=== PATIENT | female | born 1930 | race Caucasian/White ===

== ENCOUNTER 2018-11-23 00:45 | Emergency (ER) | payer OTHER ==
[2018-11-23 02:23] VITALS: BP 162/67; PULSE 74; TEMP 97.7; BMI 18.0
--- NOTE | 2018-11-23 03:43 | PDOC ---
History of Present Illness - General Chief Complaint: Pain Stated Complaint: ABD PAIN Time Seen by Provider: 11/23/18 02:18 History Source: Patient Exam Limitations: No Limitations - History of Present Illness Initial Comments: 11/23/18 03:41 Patient is a 87 year with h/o DVT on Coumadin, abdominal aneurysm, HTN, NITHYA, right kidney cancer, right nephrectomy, complaining of lower abdominal pain which occurred about 9:30 PM. Patient states she had sudden onset of crampy type lower abdominal pain which lasted for about 6 minutes then resolved. She states she's passed gas went to the bathroom to have a bowel movement then everything was resolved. States even though the pain was resolved she was concerned about the origin of the pain and so decided to come to the emergency room for evaluation. In the ER she states she had no pain and wanted to leave however on the advice of the triage nurse she decided to stay. Denies any nausea , vomiting, fever, chills, diarrhea. PMD: Dr. Mcgarry PMHX: as above PSOCHX: smoke cig 1/4PPD, neg drug, neg drink ALL: NKDA GENERAL/CONSTITUTIONAL: No fever or chills. No weakness. No weight change. HEAD, EYES, EARS, NOSE AND THROAT: No change in vision. No ear pain or discharge. No sore throat. CARDIOVASCULAR: No chest pain or shortness of breath. RESPIRATORY: No cough, wheezing, or hemoptysis. GASTROINTESTINAL: No nausea, vomiting, diarrhea or constipation. No rectal bleeding. GENITOURINARY: No dysuria, frequency, or change in urination. MUSCULOSKELETAL: (+) joint Pain, (-) muscle swelling or pain. No neck or back pain.] SKIN AND BREASTS: No rash or easy bruising. NEUROLOGIC: No headache, vertigo, loss of consciousness, or loss of sensation. PSYCHIATRIC: No depression or anxiety. ENDOCRINE: No increased thirst. No abnormal weight change. HEMATOLOGIC/LYMPHATIC: No anemia, easy bleeding, or history of blood clots. ALLERGIC/IMMUNOLOGIC: No hives or skin allergy. No latex allergy. GENERAL: The patient is awake, alert, and fully oriented, in no acute distress. HEAD: Normal with no signs of trauma. EYES: Pupils equal, round and reactive to light, extraocular movements intact, sclera anicteric, conjunctiva clear. ENT: Ears normal, nares patent, oropharynx clear without exudates. Moist mucous membranes. NECK: Normal range of motion, supple without lymphadenopathy, JVD, or masses. LUNGS: Breath sounds equal, clear to auscultation bilaterally. No wheezes, and no crackles. HEART: Regular rate and rhythm, normal S1 and S2 without murmur, rub. ABDOMEN: Soft, nontender, normoactive bowel sounds. No guarding, no rebound. No masses. EXTREMITIES: Normal range of motion, no edema. No clubbing or cyanosis. No cords, erythema, or tenderness. NEUROLOGICAL: Cranial nerves II through XII grossly intact. Normal speech, normal gait. PSYCH: Normal mood, normal affect. SKIN: Warm, Dry, normal turgor, no rashes or lesions noted. Past History - Past Medical History Allergies/Adverse Reactions: Allergies Allergy/AdvReac Type Severity Reaction Status Date / Time No Known Allergies Allergy Verified 11/23/18 02:24 Home Medications: Ambulatory Orders Metoprolol Tartrate [Lopressor] 100 mg PO BID 01/08/12 Atorvastatin Ca [Lipitor] 20 mg PO HS 06/10/12 Aspirin [ASA] 81 mg PO DAILY 1 Days tab 06/16/12 Isosorbide Mononitrate [Imdur] 30 mg PO HS #0 tab.sr.24h 06/16/12 Folic Acid - 1 mg PO DAILY #0 tablet 07/19/12 Lisinopril [Prinivil] 20 mg PO DAILY #0 tablet 07/19/12 Pantoprazole Sodium [Protonix] 40 mg PO BID #0 tablet.dr 07/19/12 Amlodipine Besylate [Norvasc -] 5 mg PO DAILY 07/30/14 Warfarin Sodium [Coumadin] 4 mg PO HS 07/30/14 Anemia: No Asthma: No Cancer: Yes (r kidney) Cardiac Disorders: No CVA: No COPD: No CHF: No Dementia: No Diabetes: No GI Disorders: No Disorders: No HTN: Yes Hypercholesterolemia: Yes Liver Disease: No Seizures: No Thyroid Disease: No - Surgical History Abdominal Surgery: Yes Appendectomy: No Cardiac Surgery: No Cholecystectomy: No Lung Surgery: No Neurologic Surgery: No Orthopedic Surgery: Yes (fx left wrist) - Suicide/Smoking/Psychosocial Hx Smoking Status: Yes Smoking History: Never smoked Have you smoked in the past 12 months: No Number of Cigarettes Smoked Daily: 7 Information on smoking cessation initiated: No 'Breaking Loose' booklet given: 01/10/12 Hx Alcohol Use: No Drug/Substance Use Hx: No Substance Use Type: None Hx Substance Use Treatment: No *Physical Exam - Vital Signs Last Vital Signs Temp Pulse Resp BP Pulse Ox 97.7 F 74 16 162/67 97 11/23/18 00:45 11/23/18 00:45 11/23/18 00:45 11/23/18 00:45 11/23/18 00:45 Moderate Sedation - Procedure Monitoring Vital Signs: Procedure Monitoring Vital Signs Temperature 97.7 F 11/23/18 00:45 Pulse Rate 74 11/23/18 00:45 Respiratory Rate 16 11/23/18 00:45 Blood Pressure 162/67 11/23/18 00:45 O2 Sat by Pulse Oximetry (%) 97 11/23/18 00:45 Medical Decision Making - Medical Decision Making 11/23/18 03:41 Patient is a 87 year with h/o DVT on Coumadin, abdominal aneurysm, HTN, NITHYA, right kidney cancer, right nephrectomy, complaining of lower abdominal pain which occurred about 9:30 PM. Patient states she had sudden onset of crampy type lower abdominal pain which lasted for about 6 minutes then resolved. She states she's passed gas went to the bathroom to have a bowel movement then everything was resolved. States even though the pain was resolved she was concerned about the origin of the pain and so decided to come to the emergency room for evaluation. In the ER she states she had no pain and wanted to leave however on the advice of the triage nurse she decided to stay. Denies any nausea , vomiting, fever, chills, diarrhea. Workup recommended due to history of abdominal aneurysm, however patient is refusing and wants to sign out AMA. Patient advised of the radius that she could rupture her aneurysm and bleed and subsequently , but does not want to stay. *DC/Admit/Observation/Transfer Diagnosis at time of Disposition: Abdominal pain Qualifiers: Abdominal location: unspecified location Qualified Code(s): R10.9 - Unspecified abdominal pain - Discharge Dispostion Disposition: AGAINST MEDICAL ADVICE Condition at time of disposition: Fair - Referrals Referrals: Mark Kuhn MD [Primary Care Provider] - - Patient Instructions - Post Discharge Activity
== END 2018-11-23 03:43 | disposition left against medical advice (07) ==
LOC: JER 00:45
DX: R10.9 Unspecified abdominal pain (principal); I10 Essential (primary) hypertension; E78.5 Hyperlipidemia, unspecified; Z86.718 Personal history of other venous thrombosis and embolism; Z79.01 Long term (current) use of anticoagulants; Z85.528 Personal history of other malignant neoplasm of kidney; Z90.5 Acquired absence of kidney; Z86.79 Personal history of other diseases of the circulatory system
CPT/HCPCS: 99281-25

== ENCOUNTER 2019-04-10 22:44 | Emergency (ER) | payer OTHER | END 2019-04-11 03:52 | disposition home or self-care (01) | LOC: JER 22:44 | DX: R25.2 Cramp and spasm (principal); I10 Essential (primary) hypertension; I71.4 Abdominal aortic aneurysm, without rupture; F17.210 Nicotine dependence, cigarettes, uncomplicated ==

== ENCOUNTER 2020-08-16 10:58 | Inpatient (IN) | payer OTHER ==
[2020-08-16] MEDS ORDERED: ACETAMINOPHEN 1000 MG/100 ML VIAL (NON FORMULARY) IVPB ONE (11:58)
[2020-08-16] MEDS ORDERED: ACETAMINOPHEN INJECTION 100 ML IVPB ONE (12:36)
[2020-08-16 12:56] LABS: BASO % 0.3 % (0-2.0); EOS % 0.1 % (0-4.5); HEMATOCRIT 28.9 % (32.4-45.2); HEMOGLOBIN 9.1 GM/dL (10.7-15.3); LYMPH % 4.6 % (8-40); MCHC 31.3 g/dl (32.0-36.0); MEAN CELL VOLUME 79.8 fl (80-96); MEAN PLT VOLUME 7.4 fl (7.5-11.1); MONO % 5.3 % (3.8-10.2); NEUT % 89.7 % (42.8-82.8); PLATELET COUNT 429 K/MM3 (134-434); RBC 3.62 M/mm3 (3.60-5.2); RDW 18.5 % (11.6-15.6); WHITE BLOOD COUNT 12.1 K/mm3 (4.0-10.0)
[2020-08-16 13:01] LABS: INR 2.73 (0.83-1.09); PROTHROMBIN TIME (PATIENT) 32.1 SEC (9.7-13.0)
[2020-08-16 13:14] LABS: POTASSIUM 4.6 mmol/L (3.5-5.1)
[2020-08-16 13:16] LABS: ALBUMIN 2.2 g/dl (3.4-5.0); BLOOD UREA NITROGEN 25.8 mg/dL (7-18); CALCIUM 8.9 mg/dL (8.5-10.1)
[2020-08-16 13:20] LABS: CREATININE 1.4 mg/dL (0.55-1.3)
[2020-08-16 13:21] LABS: BILIRUBIN,TOTAL 0.6 mg/dL (0.2-1); TOT PROT 5.8 g/dl (6.4-8.2)
[2020-08-16] MEDS ORDERED: CEFTRIAXONE 1,000 MG in DEXTROSE 5%-WATER - 50 ML IVPB ONE (14:08)
[2020-08-16] MEDS ORDERED: AZITHROMYCIN IVPB 500 MG in DEXTROSE 5%-WATER - 250 ML IVPB ONE (14:09)
[2020-08-16] MEDS ORDERED: AZITHROMYCIN IVPB 500 MG/250 ML BAG IVPB ONE (14:23)
[2020-08-16] MEDS ORDERED: CEFTRIAXONE 1 GM/50 ML BAG ONE (14:23)
[2020-08-16] MEDS ORDERED: WARFARIN NA 5 MG TABLET PO SCH (18:00)
[2020-08-16] MEDS ORDERED: WARFARIN NA 5 MG TABLET ONE (18:38)
[2020-08-16] MEDS ORDERED: methylPREDNISolone NA SUCC 40 MG/1 ML VIAL ONE (18:39)
[2020-08-16] MEDS: methylPREDNISolone NA SUCC 40 MG/1 ML VIAL IVPUSH SCH (18:46)
[2020-08-16] MEDS ORDERED: PATIENT'S OWN MEDICATION (NON-FORMULARY) (Fluticasone Propionate [Flovent Hfa] 44 MCG Inha IH SCH (22:00)
[2020-08-16] MEDS: MOMETASONE FUROATE 220 MCG/IH INHALER IH SCH (22:28)
[2020-08-16] MEDS: ISOSORBIDE MONONITRATE 30 MG TAB.SR.24H (FP) PO SCH (22:28)
[2020-08-16] MEDS: ATORVASTATIN CA 40 MG TABLET (FP) PO SCH (22:29)
[2020-08-16] MEDS: guaiFENesin 600 MG TABLET.ER (FP) PO SCH (22:29)
[2020-08-17] MEDS ORDERED: methylPREDNISolone NA SUCC 40 MG/1 ML VIAL ONE (02:07)
[2020-08-17 03:30] VITALS: BMI 16.1
[2020-08-17] MEDS: methylPREDNISolone NA SUCC 40 MG/1 ML VIAL IVPUSH SCH ×3 (03:59→18:23)
[2020-08-17 07:34] LABS: BASO % 0.1 % (0-2.0); HEMATOCRIT 25.8 % (32.4-45.2); HEMOGLOBIN 8.1 GM/dL (10.7-15.3); LYMPH % 7.4 % (8-40); MCH 25.5 pg (25.7-33.7); MCHC 31.5 g/dl (32.0-36.0); MEAN PLT VOLUME 7.9 fl (7.5-11.1); NEUT % 90.5 % (42.8-82.8); PLATELET COUNT 413 K/MM3 (134-434); RBC 3.19 M/mm3 (3.60-5.2); RDW 18.7 % (11.6-15.6); WHITE BLOOD COUNT 7.9 K/mm3 (4.0-10.0)
[2020-08-17 07:44] LABS: POTASSIUM 4.7 mmol/L (3.5-5.1)
[2020-08-17 07:45] LABS: INR 3.54 (0.83-1.09); PROTHROMBIN TIME (PATIENT) 41.3 SEC (9.7-13.0)
[2020-08-17 07:54] LABS: ALBUMIN 1.9 g/dl (3.4-5.0); BLOOD UREA NITROGEN 25.9 mg/dL (7-18)
[2020-08-17 07:57] LABS: CREATININE 1.2 mg/dL (0.55-1.3)
[2020-08-17 07:59] LABS: TOT PROT 4.9 g/dl (6.4-8.2)
[2020-08-17] MEDS ORDERED: cefTRIAXone SODIUM 1 GM VIAL ONE (09:41)
[2020-08-17] MEDS ORDERED: DEXTROSE 5%-WATER - 50 ML IVPB ONE (09:41)
[2020-08-17] MEDS: FOLIC ACID 1 MG TABLET (FP) PO SCH (09:49)
[2020-08-17] MEDS: PANTOPRAZOLE 40 MG TABLET PO SCH (09:49)
[2020-08-17] MEDS: guaiFENesin 600 MG TABLET.ER (FP) PO SCH ×2 (09:49→20:59)
[2020-08-17] MEDS: LISINOPRIL 20 MG TABLET PO SCH (09:50)
[2020-08-17] MEDS: amLODIPine BESYLATE 5 MG TABLET (FP) PO SCH (09:50)
[2020-08-17] MEDS ORDERED: PT OWN MED DRAWER 7, Y5N ONE (09:56)
[2020-08-17] MEDS ORDERED: CEFTRIAXONE 1 GM in DEXTROSE 5%-WATER - 50 ML IVPB SCH (10:00)
[2020-08-17] MEDS: TIOTROPIUM BROMIDE 2.5 MCG (SPIRIVA) RESPIMAT INHALER IH SCH (10:38)
[2020-08-17] MEDS: traMADol HCL 50 MG TABLET PO PRN (16:19)
[2020-08-17] MEDS: ISOSORBIDE MONONITRATE 30 MG TAB.SR.24H (FP) PO SCH (20:59)
[2020-08-17] MEDS: ATORVASTATIN CA 40 MG TABLET (FP) PO SCH (20:59)
[2020-08-17] MEDS: MOMETASONE FUROATE 220 MCG/IH INHALER IH SCH (21:58)
[2020-08-18] MEDS: methylPREDNISolone NA SUCC 40 MG/1 ML VIAL IVPUSH SCH ×3 (02:34→17:07)
[2020-08-18] MEDS ORDERED: PIPERACILLIN/TAZOBACTAM 3.375 GM VIAL IVPB ONE ×2 (09:25→16:58)
[2020-08-18] MEDS ORDERED: DEXTROSE 5%-WATER - 50 ML IVPB ONE ×2 (09:25→16:58)
[2020-08-18] MEDS: LISINOPRIL 20 MG TABLET PO SCH (09:31)
[2020-08-18] MEDS: amLODIPine BESYLATE 5 MG TABLET (FP) PO SCH (09:31)
[2020-08-18] MEDS: PANTOPRAZOLE 40 MG TABLET PO SCH (09:31)
[2020-08-18] MEDS: PIPERACILLIN/TAZOB 3.375 GM 3.375 GM in DEXTROSE 5%-WATER - 50 ML IVPB SCH ×2 (09:32→17:07)
[2020-08-18] MEDS: guaiFENesin 600 MG TABLET.ER (FP) PO SCH ×2 (09:32→22:44)
[2020-08-18] MEDS: TIOTROPIUM BROMIDE 2.5 MCG (SPIRIVA) RESPIMAT INHALER IH SCH (09:33)
[2020-08-18] MEDS: FOLIC ACID 1 MG TABLET (FP) PO SCH (09:33)
[2020-08-18 10:14] LABS: PROTHROMBIN TIME (PATIENT) 60.6 SEC (9.7-13.0)
[2020-08-18 10:31] LABS: INR 5.26 (0.83-1.09)
[2020-08-18] MEDS: ATORVASTATIN CA 40 MG TABLET (FP) PO SCH (22:44)
[2020-08-18] MEDS: ISOSORBIDE MONONITRATE 30 MG TAB.SR.24H (FP) PO SCH (22:44)
[2020-08-18] MEDS: MOMETASONE FUROATE 220 MCG/IH INHALER IH SCH (22:44)
[2020-08-18] MEDS: traMADol HCL 50 MG TABLET PO PRN (22:48)
[2020-08-19] MEDS ORDERED: PIPERACILLIN/TAZOBACTAM 3.375 GM VIAL IVPB ONE ×3 (01:28→17:01)
[2020-08-19] MEDS ORDERED: DEXTROSE 5%-WATER - 50 ML IVPB ONE ×3 (01:29→17:02)
[2020-08-19] MEDS: methylPREDNISolone NA SUCC 40 MG/1 ML VIAL IVPUSH SCH ×3 (02:10→17:18)
[2020-08-19] MEDS: PIPERACILLIN/TAZOB 3.375 GM 3.375 GM in DEXTROSE 5%-WATER - 50 ML IVPB SCH ×3 (02:10→17:18)
[2020-08-19 08:41] LABS: BASO % 0.1 % (0-2.0); HEMATOCRIT 28.6 % (32.4-45.2); HEMOGLOBIN 9.1 GM/dL (10.7-15.3); LYMPH % 3.5 % (8-40); MCH 25.7 pg (25.7-33.7); MCHC 31.7 g/dl (32.0-36.0); MEAN CELL VOLUME 80.9 fl (80-96); MEAN PLT VOLUME 7.4 fl (7.5-11.1); MONO % 2.3 % (3.8-10.2); NEUT % 94.1 % (42.8-82.8); PLATELET COUNT 448 K/MM3 (134-434); RBC 3.53 M/mm3 (3.60-5.2)
[2020-08-19 08:46] LABS: PROTHROMBIN TIME (PATIENT) 52.3 SEC (9.7-13.0)
[2020-08-19 09:00] LABS: INR 4.44 (0.83-1.09)
[2020-08-19] MEDS ORDERED: PHYTONADIONE 10 MG/1 ML AMP IVPB ONE (09:01)
[2020-08-19 09:03] LABS: POTASSIUM 4.7 mmol/L (3.5-5.1)
[2020-08-19 09:08] LABS: ALBUMIN 2.2 g/dl (3.4-5.0)
[2020-08-19 09:09] LABS: BLOOD UREA NITROGEN 36.9 mg/dL (7-18)
[2020-08-19 09:11] LABS: CREATININE 1.4 mg/dL (0.55-1.3)
[2020-08-19 09:12] LABS: BILIRUBIN,TOTAL 0.9 mg/dL (0.2-1); TOT PROT 5.4 g/dl (6.4-8.2)
[2020-08-19 09:35] LABS: ANISOCYTOSIS 1+; MACROCYTOSIS 0; PLATELET ESTIMATE NORMAL
[2020-08-19] MEDS: amLODIPine BESYLATE 5 MG TABLET (FP) PO SCH (10:53)
[2020-08-19] MEDS: guaiFENesin 600 MG TABLET.ER (FP) PO SCH ×2 (10:53→21:58)
[2020-08-19] MEDS: FOLIC ACID 1 MG TABLET (FP) PO SCH (10:53)
[2020-08-19] MEDS: TIOTROPIUM BROMIDE 2.5 MCG (SPIRIVA) RESPIMAT INHALER IH SCH (10:53)
[2020-08-19] MEDS: LISINOPRIL 20 MG TABLET PO SCH (10:53)
[2020-08-19] MEDS: PANTOPRAZOLE 40 MG TABLET PO SCH (10:53)
[2020-08-19] MEDS: ISOSORBIDE MONONITRATE 30 MG TAB.SR.24H (FP) PO SCH (21:58)
[2020-08-19] MEDS: ATORVASTATIN CA 40 MG TABLET (FP) PO SCH (21:58)
[2020-08-19] MEDS: MOMETASONE FUROATE 220 MCG/IH INHALER IH SCH (21:59)
[2020-08-19] MEDS: traMADol HCL 50 MG TABLET PO PRN (22:33)
[2020-08-20] MEDS: methylPREDNISolone NA SUCC 40 MG/1 ML VIAL IVPUSH SCH ×3 (02:30→17:11)
[2020-08-20] MEDS ORDERED: DEXTROSE 5%-WATER - 50 ML IVPB ONE ×3 (03:33→16:02)
[2020-08-20] MEDS ORDERED: PIPERACILLIN/TAZOBACTAM 3.375 GM VIAL IVPB ONE ×3 (03:33→16:01)
[2020-08-20] MEDS: PIPERACILLIN/TAZOB 3.375 GM 3.375 GM in DEXTROSE 5%-WATER - 50 ML IVPB SCH ×3 (03:38→17:10)
[2020-08-20 06:52] LABS: BASO % 0.1 % (0-2.0); HEMOGLOBIN 8.7 GM/dL (10.7-15.3); LYMPH % 3.6 % (8-40); MCH 25.2 pg (25.7-33.7); MCHC 31.2 g/dl (32.0-36.0); MEAN CELL VOLUME 80.6 fl (80-96); MEAN PLT VOLUME 7.4 fl (7.5-11.1); NEUT % 92.3 % (42.8-82.8); PLATELET COUNT 362 K/MM3 (134-434); RBC 3.47 M/mm3 (3.60-5.2); RDW 18.9 % (11.6-15.6); WHITE BLOOD COUNT 17.3 K/mm3 (4.0-10.0)
[2020-08-20 06:53] LABS: INR 1.11 (0.83-1.09); PROTHROMBIN TIME (PATIENT) 13.6 SEC (9.7-13.0)
[2020-08-20 07:07] LABS: POTASSIUM 4.4 mmol/L (3.5-5.1)
[2020-08-20 07:10] LABS: BLOOD UREA NITROGEN 37.7 mg/dL (7-18); CALCIUM 8.2 mg/dL (8.5-10.1)
[2020-08-20 07:14] LABS: CREATININE 1.4 mg/dL (0.55-1.3)
[2020-08-20 07:15] LABS: BILIRUBIN,TOTAL 0.8 mg/dL (0.2-1); TOT PROT 5.1 g/dl (6.4-8.2)
[2020-08-20] MEDS ORDERED: PT OWN MED DRAWER 7, Y5N ONE (09:17)
[2020-08-20 09:25] LABS: ANISOCYTOSIS 1+; MACROCYTOSIS 0; PLATELET ESTIMATE NORMAL
[2020-08-20] MEDS: PANTOPRAZOLE 40 MG TABLET PO SCH (09:45)
[2020-08-20] MEDS: LISINOPRIL 20 MG TABLET PO SCH (09:45)
[2020-08-20] MEDS: guaiFENesin 600 MG TABLET.ER (FP) PO SCH ×2 (09:46→22:00)
[2020-08-20] MEDS: FOLIC ACID 1 MG TABLET (FP) PO SCH (09:46)
[2020-08-20] MEDS: TIOTROPIUM BROMIDE 2.5 MCG (SPIRIVA) RESPIMAT INHALER IH SCH (09:46)
[2020-08-20] MEDS: amLODIPine BESYLATE 5 MG TABLET (FP) PO SCH (09:46)
[2020-08-20] MEDS ORDERED: ENOXAPARIN NA (PORCINE) 40 MG/0.4 ML DISP.SYRIN SQ SCH ×2 (10:45→22:00)
[2020-08-20] MEDS ORDERED: ENOXAPARIN NA (PORCINE) 40 MG/0.4 ML DISP.SYRIN SQ ONE (13:30)
[2020-08-20] MEDS: ISOSORBIDE MONONITRATE 30 MG TAB.SR.24H (FP) PO SCH (22:00)
[2020-08-20] MEDS: ATORVASTATIN CA 40 MG TABLET (FP) PO SCH (22:00)
[2020-08-20] MEDS: MOMETASONE FUROATE 220 MCG/IH INHALER IH SCH (22:01)
[2020-08-21] MEDS ORDERED: PIPERACILLIN/TAZOBACTAM 3.375 GM VIAL IVPB ONE ×3 (02:04→16:30)
[2020-08-21] MEDS ORDERED: DEXTROSE 5%-WATER - 50 ML IVPB ONE ×3 (02:04→16:30)
[2020-08-21] MEDS: PIPERACILLIN/TAZOB 3.375 GM 3.375 GM in DEXTROSE 5%-WATER - 50 ML IVPB SCH ×3 (03:00→17:30)
[2020-08-21] MEDS: methylPREDNISolone NA SUCC 40 MG/1 ML VIAL IVPUSH SCH ×3 (03:00→17:30)
[2020-08-21 07:00] LABS: INR 1.06 (0.83-1.09); PROTHROMBIN TIME (PATIENT) 12.8 SEC (9.7-13.0)
[2020-08-21] MEDS: amLODIPine BESYLATE 5 MG TABLET (FP) PO SCH (09:29)
[2020-08-21] MEDS: TIOTROPIUM BROMIDE 2.5 MCG (SPIRIVA) RESPIMAT INHALER IH SCH (09:29)
[2020-08-21] MEDS: LISINOPRIL 20 MG TABLET PO SCH (09:29)
[2020-08-21] MEDS: FOLIC ACID 1 MG TABLET (FP) PO SCH (09:29)
[2020-08-21] MEDS: PANTOPRAZOLE 40 MG TABLET PO SCH (09:29)
[2020-08-21] MEDS: guaiFENesin 600 MG TABLET.ER (FP) PO SCH ×2 (09:29→21:52)
[2020-08-21 14:28] LABS: BF WBC & OTHER NUCLEATED CELLS 1348 /mm3
[2020-08-21 15:41] LABS: BODY FLUID MACROPHAGES 16 %
[2020-08-21] MEDS: traMADol HCL 50 MG TABLET PO PRN ×2 (16:34→21:51)
[2020-08-21] MEDS: ISOSORBIDE MONONITRATE 30 MG TAB.SR.24H (FP) PO SCH (21:51)
[2020-08-21] MEDS: ATORVASTATIN CA 40 MG TABLET (FP) PO SCH (21:52)
[2020-08-21] MEDS: MOMETASONE FUROATE 220 MCG/IH INHALER IH SCH (21:56)
[2020-08-22] MEDS: PIPERACILLIN/TAZOB 3.375 GM 3.375 GM in DEXTROSE 5%-WATER - 50 ML IVPB SCH ×3 (02:30→17:13)
[2020-08-22] MEDS ORDERED: DEXTROSE 5%-WATER - 50 ML IVPB ONE ×3 (03:02→17:06)
[2020-08-22] MEDS ORDERED: PIPERACILLIN/TAZOBACTAM 3.375 GM VIAL IVPB ONE ×3 (03:02→17:05)
[2020-08-22] MEDS: methylPREDNISolone NA SUCC 40 MG/1 ML VIAL IVPUSH SCH ×3 (03:17→17:12)
[2020-08-22 07:06] LABS: INR 1.08 (0.83-1.09); PROTHROMBIN TIME (PATIENT) 13.2 SEC (9.7-13.0)
[2020-08-22 07:14] LABS: BASO % 0.1 % (0-2.0); HEMATOCRIT 28.7 % (32.4-45.2); HEMOGLOBIN 8.8 GM/dL (10.7-15.3); LYMPH % 2.5 % (8-40); MCH 24.5 pg (25.7-33.7); MCHC 30.6 g/dl (32.0-36.0); MEAN PLT VOLUME 7.7 fl (7.5-11.1); NEUT % 91.4 % (42.8-82.8); PLATELET COUNT 302 K/MM3 (134-434); RBC 3.58 M/mm3 (3.60-5.2); RDW 19.6 % (11.6-15.6); WHITE BLOOD COUNT 16.3 K/mm3 (4.0-10.0)
[2020-08-22 07:22] LABS: POTASSIUM 4.5 mmol/L (3.5-5.1)
[2020-08-22 07:32] LABS: CALCIUM 8.5 mg/dL (8.5-10.1)
[2020-08-22 07:33] LABS: ALBUMIN 1.9 g/dl (3.4-5.0); BLOOD UREA NITROGEN 38.6 mg/dL (7-18)
[2020-08-22 07:36] LABS: CREATININE 1.3 mg/dL (0.55-1.3)
[2020-08-22 07:38] LABS: BILIRUBIN,TOTAL 0.6 mg/dL (0.2-1); TOT PROT 4.9 g/dl (6.4-8.2)
[2020-08-22] MEDS: FOLIC ACID 1 MG TABLET (FP) PO SCH (09:47)
[2020-08-22] MEDS: amLODIPine BESYLATE 5 MG TABLET (FP) PO SCH (09:47)
[2020-08-22] MEDS: LISINOPRIL 20 MG TABLET PO SCH (09:47)
[2020-08-22] MEDS: TIOTROPIUM BROMIDE 2.5 MCG (SPIRIVA) RESPIMAT INHALER IH SCH (09:47)
[2020-08-22] MEDS: guaiFENesin 600 MG TABLET.ER (FP) PO SCH ×2 (09:47→21:27)
[2020-08-22] MEDS: PANTOPRAZOLE 40 MG TABLET PO SCH (09:47)
[2020-08-22 10:57] LABS: ANISOCYTOSIS 1+; MACROCYTOSIS 0; OVALOCYTE 1+; PLATELET ESTIMATE NORMAL
[2020-08-22 14:07] LABS: BODY FLUID ALBUMIN 1.6 g/dL (Not Estab.)
[2020-08-22] MEDS: ISOSORBIDE MONONITRATE 30 MG TAB.SR.24H (FP) PO SCH (21:27)
[2020-08-22] MEDS: ATORVASTATIN CA 40 MG TABLET (FP) PO SCH (21:27)
[2020-08-22] MEDS: ENOXAPARIN NA (PORCINE) 40 MG/0.4 ML DISP.SYRIN SQ SCH (21:28)
[2020-08-22] MEDS: MOMETASONE FUROATE 220 MCG/IH INHALER IH SCH (21:28)
[2020-08-23] MEDS ORDERED: PIPERACILLIN/TAZOBACTAM 3.375 GM VIAL IVPB ONE ×3 (02:36→15:56)
[2020-08-23] MEDS ORDERED: DEXTROSE 5%-WATER - 50 ML IVPB ONE ×3 (02:36→15:56)
[2020-08-23] MEDS: PIPERACILLIN/TAZOB 3.375 GM 3.375 GM in DEXTROSE 5%-WATER - 50 ML IVPB SCH ×3 (02:43→17:00)
[2020-08-23] MEDS: methylPREDNISolone NA SUCC 40 MG/1 ML VIAL IVPUSH SCH ×3 (02:44→17:00)
[2020-08-23 07:06] LABS: PROTHROMBIN TIME (PATIENT) 12.1 SEC (9.7-13.0)
[2020-08-23] MEDS: PANTOPRAZOLE 40 MG TABLET PO SCH (09:08)
[2020-08-23] MEDS: amLODIPine BESYLATE 5 MG TABLET (FP) PO SCH (09:08)
[2020-08-23] MEDS: FOLIC ACID 1 MG TABLET (FP) PO SCH (09:08)
[2020-08-23] MEDS: guaiFENesin 600 MG TABLET.ER (FP) PO SCH ×2 (09:08→21:22)
[2020-08-23] MEDS: LISINOPRIL 20 MG TABLET PO SCH (09:08)
[2020-08-23] MEDS: TIOTROPIUM BROMIDE 2.5 MCG (SPIRIVA) RESPIMAT INHALER IH SCH (09:10)
[2020-08-23 11:09] LABS: BASO % 0.2 % (0-2.0); HEMATOCRIT 28.8 % (32.4-45.2); HEMOGLOBIN 8.7 GM/dL (10.7-15.3); LYMPH % 2.4 % (8-40); MCH 24.7 pg (25.7-33.7); MCHC 30.1 g/dl (32.0-36.0); MEAN CELL VOLUME 82.1 fl (80-96); MEAN PLT VOLUME 8.3 fl (7.5-11.1); MONO % 6.2 % (3.8-10.2); NEUT % 91.2 % (42.8-82.8); PLATELET COUNT 270 K/MM3 (134-434); RBC 3.51 M/mm3 (3.60-5.2); RDW 19.4 % (11.6-15.6); WHITE BLOOD COUNT 16.6 K/mm3 (4.0-10.0)
[2020-08-23 11:35] LABS: POTASSIUM 5.2 mmol/L (3.5-5.1)
[2020-08-23 11:37] LABS: CALCIUM 8.8 mg/dL (8.5-10.1)
[2020-08-23 11:38] LABS: ALBUMIN 1.9 g/dl (3.4-5.0); BLOOD UREA NITROGEN 39.2 mg/dL (7-18)
[2020-08-23 11:41] LABS: CREATININE 1.3 mg/dL (0.55-1.3)
[2020-08-23 11:42] LABS: BILIRUBIN,TOTAL 0.5 mg/dL (0.2-1)
[2020-08-23 11:45] LABS: ANISOCYTOSIS 2+; MACROCYTOSIS 1+; PLATELET ESTIMATE NORMAL
[2020-08-23] MEDS: ACETAMINOPHEN 325 MG TABLET (FP) PO PRN ×2 (12:40→21:24)
[2020-08-23] MEDS: ISOSORBIDE MONONITRATE 30 MG TAB.SR.24H (FP) PO SCH (21:22)
[2020-08-23] MEDS: ATORVASTATIN CA 40 MG TABLET (FP) PO SCH (21:22)
[2020-08-23] MEDS: MOMETASONE FUROATE 220 MCG/IH INHALER IH SCH (21:23)
[2020-08-23] MEDS: ENOXAPARIN NA (PORCINE) 40 MG/0.4 ML DISP.SYRIN SQ SCH (21:23)
[2020-08-24] MEDS ORDERED: PIPERACILLIN/TAZOBACTAM 3.375 GM VIAL IVPB ONE ×3 (00:56→17:04)
[2020-08-24] MEDS ORDERED: DEXTROSE 5%-WATER - 50 ML IVPB ONE ×3 (00:56→17:05)
[2020-08-24] MEDS: methylPREDNISolone NA SUCC 40 MG/1 ML VIAL IVPUSH SCH ×3 (01:05→17:18)
[2020-08-24] MEDS: PIPERACILLIN/TAZOB 3.375 GM 3.375 GM in DEXTROSE 5%-WATER - 50 ML IVPB SCH ×3 (01:05→17:17)
[2020-08-24 07:02] LABS: BASO % 0.1 % (0-2.0); HEMATOCRIT 28.7 % (32.4-45.2); HEMOGLOBIN 8.6 GM/dL (10.7-15.3); LYMPH % 2.4 % (8-40); MCH 24.5 pg (25.7-33.7); MCHC 30.2 g/dl (32.0-36.0); MEAN CELL VOLUME 81.2 fl (80-96); MEAN PLT VOLUME 8.2 fl (7.5-11.1); MONO % 3.9 % (3.8-10.2); NEUT % 93.6 % (42.8-82.8); PLATELET COUNT 251 K/MM3 (134-434); RBC 3.53 M/mm3 (3.60-5.2); WHITE BLOOD COUNT 14.2 K/mm3 (4.0-10.0)
[2020-08-24 07:05] LABS: POTASSIUM 5.1 mmol/L (3.5-5.1)
[2020-08-24 07:14] LABS: ALBUMIN 1.8 g/dl (3.4-5.0); BLOOD UREA NITROGEN 36.9 mg/dL (7-18)
[2020-08-24 07:15] LABS: CALCIUM 8.6 mg/dL (8.5-10.1)
[2020-08-24 07:17] LABS: CREATININE 1.2 mg/dL (0.55-1.3)
[2020-08-24 07:18] LABS: BILIRUBIN,TOTAL 0.5 mg/dL (0.2-1); TOT PROT 4.8 g/dl (6.4-8.2)
[2020-08-24] MEDS: amLODIPine BESYLATE 5 MG TABLET (FP) PO SCH (09:34)
[2020-08-24] MEDS: FOLIC ACID 1 MG TABLET (FP) PO SCH (09:34)
[2020-08-24] MEDS: guaiFENesin 600 MG TABLET.ER (FP) PO SCH ×2 (09:34→22:05)
[2020-08-24] MEDS: LISINOPRIL 20 MG TABLET PO SCH (09:34)
[2020-08-24] MEDS: PANTOPRAZOLE 40 MG TABLET PO SCH (09:34)
[2020-08-24] MEDS: TIOTROPIUM BROMIDE 2.5 MCG (SPIRIVA) RESPIMAT INHALER IH SCH (09:49)
[2020-08-24 11:24] LABS: ANISOCYTOSIS 0; MACROCYTOSIS 0; PLATELET ESTIMATE NORMAL
[2020-08-24] MEDS: ACETAMINOPHEN 325 MG TABLET (FP) PO PRN ×2 (15:31→22:06)
[2020-08-24] MEDS: traMADol HCL 50 MG TABLET PO PRN (16:37)
[2020-08-24] MEDS: ATORVASTATIN CA 40 MG TABLET (FP) PO SCH (22:05)
[2020-08-24] MEDS: ENOXAPARIN NA (PORCINE) 40 MG/0.4 ML DISP.SYRIN SQ SCH (22:05)
[2020-08-24] MEDS: ISOSORBIDE MONONITRATE 30 MG TAB.SR.24H (FP) PO SCH (22:05)
[2020-08-24] MEDS: MOMETASONE FUROATE 220 MCG/IH INHALER IH SCH (22:07)
[2020-08-25] MEDS: PIPERACILLIN/TAZOB 3.375 GM 3.375 GM in DEXTROSE 5%-WATER - 50 ML IVPB SCH ×2 (02:00→09:54)
[2020-08-25] MEDS: methylPREDNISolone NA SUCC 40 MG/1 ML VIAL IVPUSH SCH ×2 (02:00→09:54)
[2020-08-25] MEDS ORDERED: DEXTROSE 5%-WATER - 50 ML IVPB ONE ×2 (02:11→09:47)
[2020-08-25] MEDS ORDERED: PIPERACILLIN/TAZOBACTAM 3.375 GM VIAL IVPB ONE ×2 (02:11→09:46)
[2020-08-25] MEDS: amLODIPine BESYLATE 5 MG TABLET (FP) PO SCH (09:54)
[2020-08-25] MEDS: PANTOPRAZOLE 40 MG TABLET PO SCH (09:54)
[2020-08-25] MEDS: guaiFENesin 600 MG TABLET.ER (FP) PO SCH (09:54)
[2020-08-25] MEDS: LISINOPRIL 20 MG TABLET PO SCH (09:54)
[2020-08-25] MEDS: FOLIC ACID 1 MG TABLET (FP) PO SCH (09:54)
[2020-08-25] MEDS: TIOTROPIUM BROMIDE 2.5 MCG (SPIRIVA) RESPIMAT INHALER IH SCH (09:59)
[2020-08-25 11:50] VITALS: BP 121/58; PULSE 81; TEMP 97.8
== END 2020-08-25 11:04 | disposition home health service (06) | DRG 180 ==
LOC: JER 10:58 → JERBED 14:43 → J4W 08-17 02:54
PROVIDERS: ADMIT Family Medicine; ATTEND Family Medicine
PROC: 0W9930Z Drainage of Right Pleural Cavity with Drainage Device, Percutaneous Approach (ICD-10-PCS; 2020-08-21)
PROC: 0BBC3ZX Excision of Right Upper Lung Lobe, Percutaneous Approach, Diagnostic (ICD-10-PCS; principal; 2020-08-22)
DX: C34.11 Malignant neoplasm of upper lobe, right bronchus or lung (principal); J18.9 Pneumonia, unspecified organism; E43 Unspecified severe protein-calorie malnutrition; J96.01 Acute respiratory failure with hypoxia; J44.1 Chronic obstructive pulmonary disease with (acute) exacerbation; I24.8 Other forms of acute ischemic heart disease; D68.9 Coagulation defect, unspecified; J91.0 Malignant pleural effusion; R64 Cachexia; Z68.1 Body mass index [BMI] 19.9 or less, adult; E78.5 Hyperlipidemia, unspecified; I10 Essential (primary) hypertension; D64.9 Anemia, unspecified; D72.829 Elevated white blood cell count, unspecified
CPT/HCPCS: 32405; 32557; 36415; 71045-TC-FY; 72070-TC-FY; 72100-TC-FY; 74176-TC; 77012-TC; 80053; 82042; 82150; 82378; 82550; 82728; 82945; 83615; 83986; 84157; 84478; 84484; 85025; 85610; 87040; 87070; 87075; 87102; 87116; 87205; 87206; 87210; 88108; 88305-TC; 88341-TC; 93005; 93010; 94010; 97116-GP; 97161-GP; 99285-25; C9803; J0131; Q9967; U0003

== ENCOUNTER 2020-09-01 20:32 | Inpatient (IN) | payer BC, OTHER ==
[2020-09-01 21:18] VITALS: BMI 16.8
[2020-09-01 21:51] LABS: VENOUS BASE EXCESS -10.9 mmol/L (-2-2); VENOUS O2 SATURATION 19.6 % (70-80); VENOUS PCO2 43.4 mmHg (38-52); VENOUS PH 7.2 (7.310-7.410)
[2020-09-01 21:53] LABS: BASO % 0.2 % (0-2.0); HEMATOCRIT 33.5 % (32.4-45.2); HEMOGLOBIN 10.3 GM/dL (10.7-15.3); LYMPH % 1.7 % (8-40); MCHC 30.7 g/dl (32.0-36.0); MEAN CELL VOLUME 81.7 fl (80-96); MEAN PLT VOLUME 8.4 fl (7.5-11.1); MONO % 3.8 % (3.8-10.2); NEUT % 94.3 % (42.8-82.8); PLATELET COUNT 228 K/MM3 (134-434)
[2020-09-01] MEDS ORDERED: SODIUM CHLORIDE 0.9% 1000 ML INFUS.BAG IV ONE (21:54)
[2020-09-01 22:12] LABS: CALCIUM 8.9 mg/dL (8.5-10.1)
[2020-09-01 22:13] LABS: ALBUMIN 1.8 g/dl (3.4-5.0)
[2020-09-01 22:16] LABS: CREATININE 2.1 mg/dL (0.55-1.3)
[2020-09-01 22:18] LABS: TOT PROT 5.1 g/dl (6.4-8.2)
[2020-09-01 22:23] LABS: BILIRUBIN,TOTAL 0.7 mg/dL (0.2-1); BLOOD UREA NITROGEN 74.7 mg/dL (7-18)
[2020-09-01 22:24] LABS: INR 12.8 (0.83-1.09)
[2020-09-01] MEDS ORDERED: PHYTONADIONE 5 MG TABLET PO ONE (22:29)
[2020-09-01 22:32] LABS: ANISOCYTOSIS 2+; MACROCYTOSIS 0; PLATELET ESTIMATE NORMAL
[2020-09-01] MEDS ORDERED: PHYTONADIONE 5 MG TABLET ONE (22:33)
[2020-09-01] MEDS ORDERED: ACETAMINOPHEN 1000 MG/100 ML BAG IVPB ONE (22:37)
[2020-09-01] MEDS ORDERED: SODIUM CHLORIDE 0.9% 500 ML INFUS.BAG IV ONE (22:51)
[2020-09-01] MEDS ORDERED: ACETAMINOPHEN INJECTION 100 ML IVPB ONE (22:55)
[2020-09-01] MEDS ORDERED: PIPERACILLIN/TAZOB 4.5 GM 4.5 GM in DEXTROSE 5%-WATER 100 ML IVPB ONE (23:13)
[2020-09-02] MEDS ORDERED: PIPERACILLIN/TAZOB 4.5 GM 4.5 GM/100 ML BAG IVPB ONE (00:19)
[2020-09-02] MEDS ORDERED: SODIUM CHLORIDE 1,000 ML IV SCH (03:00)
[2020-09-02] MEDS ORDERED: VANCOMYCIN 1 GRAM (PRE-DOCKED) 1,000 MG/250 ML BAG IVPB ONE ×2 (03:00→03:04)
[2020-09-02 06:46] LABS: EPI CELLS >36 /uL (0-25.1); HYALINE CASTS 3 /uL (0-3.1); URINE APPEARANCE CLOUDY; URINE BACTERIA 20 /uL (0-1359); URINE BILIRUBIN NEGATIVE (NEGATIVE); URINE COLOR YELLOW; URINE GLUCOSE (UA) NEGATIVE (NEGATIVE); URINE KETONE NEGATIVE (NEGATIVE); URINE LEUK ESTERASE 1+ (NEGATIVE); URINE NITRITE NEGATIVE (NEGATIVE); URINE PROTEIN TRACE (NEGATIVE); URINE RBC 260 /uL (0-23.9); URINE UROBILINOGEN 0.2 mg/dL (0.2-1.0); URINE WBC 195 /uL (0-25.8)
[2020-09-02 07:17] LABS: BASO % 0.1 % (0-2.0); HEMATOCRIT 29.9 % (32.4-45.2); HEMOGLOBIN 9.5 GM/dL (10.7-15.3); LYMPH % 1.7 % (8-40); MCH 25.4 pg (25.7-33.7); MCHC 31.7 g/dl (32.0-36.0); MEAN CELL VOLUME 80.2 fl (80-96); MEAN PLT VOLUME 8.4 fl (7.5-11.1); MONO % 3.6 % (3.8-10.2); NEUT % 94.6 % (42.8-82.8); PLATELET COUNT 186 K/MM3 (134-434); RBC 3.73 M/mm3 (3.60-5.2); RDW 20.4 % (11.6-15.6); WHITE BLOOD COUNT 23.6 K/mm3 (4.0-10.0)
[2020-09-02 07:44] LABS: CALCIUM 8.7 mg/dL (8.5-10.1)
[2020-09-02 07:45] LABS: BLOOD UREA NITROGEN 70.2 mg/dL (7-18)
[2020-09-02 07:50] LABS: BILIRUBIN,TOTAL 0.7 mg/dL (0.2-1); TOT PROT 5.1 g/dl (6.4-8.2)
[2020-09-02] MEDS ORDERED: PIPERACILLIN/TAZOB 2.25 GM 2.25 GM in DEXTROSE 5%-WATER - 50 ML IVPB SCH (09:00)
[2020-09-02] MEDS ORDERED: PIPERACILLIN/TAZOB 2.25 GM 2.25 GM/50 ML BAG IVPB ONE (09:08)
[2020-09-02 09:34] LABS: ANISOCYTOSIS 1+; MACROCYTOSIS 1+; PLATELET ESTIMATE NORMAL
[2020-09-02] MEDS ORDERED: SODIUM ZIRCONIUM CYCLOSILICATE (LOKELMA) 5 GM PACKET PO ONE (10:00)
[2020-09-02] MEDS: PIPERACILLIN/TAZOB 2.25 GM 2.25 GM in DEXTROSE 5%-WATER - 50 ML IVPB SCH ×2 (10:25→16:00)
[2020-09-02] MEDS ORDERED: morphine CARPU-JECT 4 MG/1 ML DISP.SYRIN IVPUSH PRN (10:41)
[2020-09-02] MEDS ORDERED: SODIUM ZIRCONIUM CYCLOSILICATE (LOKELMA) 5 GM PACKET ONE (11:38)
[2020-09-02 17:26] LABS: INR 1.65 (0.83-1.09)
[2020-09-02 19:33] LABS: BLOOD UREA NITROGEN 67.6 mg/dL (7-18)
[2020-09-02 19:36] LABS: CREATININE 1.9 mg/dL (0.55-1.3)
[2020-09-02] MEDS ORDERED: FOLIC ACID INJECTION - 1 MG, THIAMINE HCL 100 MG, MULTIVIT INJECTION ADULT 10 ML in SOD... IVPB ONE (19:48)
[2020-09-03] MEDS ORDERED: DEXTROSE 5%-WATER - 50 ML IVPB ONE ×3 (01:03→16:55)
[2020-09-03] MEDS ORDERED: PIPERACILLIN/TAZOBACTAM 3.375 GM VIAL IVPB ONE ×3 (01:03→16:55)
[2020-09-03] MEDS: PIPERACILLIN/TAZOB 3.375 GM 3.375 GM in DEXTROSE 5%-WATER - 50 ML IVPB SCH ×3 (02:00→17:19)
[2020-09-03] MEDS ORDERED: morphine SULFATE 4 MG/ML VIAL IVPUSH PRN (05:03)
[2020-09-03 07:54] LABS: BASO % 0.4 % (0-2.0); HEMATOCRIT 30.6 % (32.4-45.2); HEMOGLOBIN 9.5 GM/dL (10.7-15.3); LYMPH % 2.4 % (8-40); MCH 25.3 pg (25.7-33.7); MCHC 30.9 g/dl (32.0-36.0); MEAN CELL VOLUME 82.1 fl (80-96); MEAN PLT VOLUME 8.6 fl (7.5-11.1); MONO % 4.1 % (3.8-10.2); NEUT % 93.1 % (42.8-82.8); PLATELET COUNT 185 K/MM3 (134-434); RBC 3.73 M/mm3 (3.60-5.2); RDW 20.8 % (11.6-15.6); WHITE BLOOD COUNT 26.7 K/mm3 (4.0-10.0)
[2020-09-03 07:55] LABS: INR 1.69 (0.83-1.09); PROTHROMBIN TIME (PATIENT) 20.5 SEC (9.7-13.0)
[2020-09-03 08:38] LABS: BLOOD UREA NITROGEN 74.6 mg/dL (7-18); CREATININE 2.1 mg/dL (0.55-1.3); PHOSPHOROUS 5.8 mg/dL (2.5-4.9)
[2020-09-03 08:39] LABS: CALCIUM 8.9 mg/dL (8.5-10.1); TOT PROT 5.4 g/dl (6.4-8.2)
[2020-09-03 08:40] LABS: MAGNESIUM 2.2 mg/dL (1.8-2.4)
[2020-09-03 08:46] LABS: BILIRUBIN,TOTAL 1.4 mg/dL (0.2-1)
[2020-09-03 09:13] LABS: ANISOCYTOSIS 2+; MACROCYTOSIS 0; PLATELET ESTIMATE NORMAL
[2020-09-03] MEDS ORDERED: SODIUM CHLORIDE 1,000 ML IV SCH (10:00)
[2020-09-04] MEDS ORDERED: PIPERACILLIN/TAZOBACTAM 3.375 GM VIAL IVPB ONE (00:43)
[2020-09-04] MEDS ORDERED: DEXTROSE 5%-WATER - 50 ML IVPB ONE (00:43)
[2020-09-04] MEDS: PIPERACILLIN/TAZOB 3.375 GM 3.375 GM in DEXTROSE 5%-WATER - 50 ML IVPB SCH (00:59)
[2020-09-04 03:24] VITALS: BP 90/45; PULSE 84; TEMP 97.9
== END 2020-09-04 05:24 | disposition expired | DRG 871 ==
LOC: JER 20:32 → JERBED 23:22 → J4W 09-02 22:57
PROVIDERS: ADMIT Internal Medicine; ATTEND Family Medicine
DX: A41.89 Other specified sepsis (principal); J96.21 Acute and chronic respiratory failure with hypoxia; J18.9 Pneumonia, unspecified organism; C34.90 Malignant neoplasm of unspecified part of unspecified bronchus or lung; R64 Cachexia; N17.9 Acute kidney failure, unspecified; J90 Pleural effusion, not elsewhere classified; J44.1 Chronic obstructive pulmonary disease with (acute) exacerbation; Z68.1 Body mass index [BMI] 19.9 or less, adult; I24.8 Other forms of acute ischemic heart disease; E87.2 Acidosis; J91.0 Malignant pleural effusion; I46.9 Cardiac arrest, cause unspecified; R79.1 Abnormal coagulation profile; I95.9 Hypotension, unspecified; M54.9 Dorsalgia, unspecified; F17.210 Nicotine dependence, cigarettes, uncomplicated; E87.5 Hyperkalemia; I10 Essential (primary) hypertension; E86.0 Dehydration; E78.5 Hyperlipidemia, unspecified; Z90.5 Acquired absence of kidney; Z86.718 Personal history of other venous thrombosis and embolism; Z99.81 Dependence on supplemental oxygen
CPT/HCPCS: 36415; 36430; 71045-TC-FY; 80048; 80053; 81003; 82803; 83605; 83735; 84100; 84484; 85025; 85610; 86850; 86900; 86901; 87040; 87086; 87899; 93005; 93010; 94660; 99285-25; C9803; J0131; P9017; U0003